=== PATIENT | male | born 1980 | race African-American/Black ===

== ENCOUNTER 2017-05-28 19:34 | Emergency (ER) | payer OTHER ==
[2017-05-28 20:07] LABS: BASOPHILS % (AUTO) 0.5 %; EOSINOPHILS # (AUTO) 0.1 10^3/uL (0.0-0.7); EOSINOPHILS % (AUTO) 1.3 %; HCT - HEMATOCRIT 41.7 % (42.0-52.0); LYMPHOCYTES # (AUTO) 0.9 10^3/uL (1.5-3.5); LYMPHOCYTES % (AUTO) 23.1 %; MEAN CORPUSCULAR HEMOGLOBIN 27.7 pg (27.0-31.0); MEAN CORPUSCULAR HGB CONC 33.6 g/dL (32.0-36.0); MEAN CORPUSCULAR VOLUME 82.5 fL (80.0-94.0); MEAN PLATELET VOLUME 8.2 fL (7.4-11.4); MONOCYTES # (AUTO) 0.4 10^3/uL (0.0-1.0); MONOCYTES % (AUTO) 10.1 %; NEUTROPHILS # (AUTO) 2.5 10^3/uL (1.5-6.6); RED BLOOD COUNT 5.06 10^6/uL (4.70-6.10); RED CELL DISTRIBUTION WIDTH 15.2 % (12.0-15.0); UNCORRECTED WHITE BLOOD COUNT 3.8 x10^3/uL; WHITE BLOOD COUNT 3.8 x10^3/uL (4.8-10.8)
--- NOTE | 2017-05-28 20:16 | ED Physician Documentation ---
PD HPI CHEST PAIN - Stated complaint Stated Complaint: CHEST PAIN - Chief complaint Chief Complaint: Cardiac - History obtained from History obtained from: Patient, Family - History of Present Illness Timing - onset: How many hours ago (1.5) Timing - duration: Hours (1.5) Timing - details: Abrupt onset Pain level max: 6 Pain level now: 0 Quality: Aching, Dull, Pain Location: Substernal Radiation: Other (non-radiating) Improved by: Other (hasn't taken anything) Worsened by: Other (vomiting) Associated symptoms: Nausea, Vomiting, Other (states vomiting and diarrhea today.). No: Shortness of air, Diaphoresis Similar symptoms before: Has not had sx before Recently seen: Not recently seen - Additional information Additional information: Patient is a 36-year-old male who presents to the emergency department with vomiting and diarrhea after eating [employer] today. Then developed chest pain tonight. The chest pain has been constant, but resolved upon arrival to the emergency department. Has never had pain like this before. No family history of cardiac disease. Review of Systems Ten Systems: 10 systems reviewed and negative Constitutional: denies: Fever, Chills Ears: denies: Ear pain Nose: denies: Rhinorrhea / runny nose, Congestion Throat: denies: Sore throat Cardiac: denies: Palpitations Respiratory: denies: Dyspnea, Cough, Wheezing GI: denies: Hematemesis, Bloody / black stool Skin: denies: Rash Musculoskeletal: denies: Neck pain, Back pain Neurologic: denies: Headache PD PAST MEDICAL HISTORY - Past Medical History Past Medical History: No Cardiovascular: None Respiratory: None Neuro: None Endocrine/Autoimmune: None GI: None HEENT: None Psych: None Musculoskeletal: None Derm: None - Past Surgical History Past Surgical History: No - Present Medications Home Medications: Ambulatory Orders Medication Instructions Recorded Confirmed Ondansetron Odt [Zofran] 4 mg TL Q6H PRN #10 tablet 05/28/17 - Allergies Allergies/Adverse Reactions: Allergies Allergy/AdvReac Type Severity Reaction Status Date / Time shellfish derived Allergy Anaphylaxis Verified 05/28/17 20:10 - Social History Does the pt smoke?: No Smoking Status: Never smoker Does the pt drink ETOH?: Yes Does the pt have substance abuse?: No - Immunizations Immunizations are current?: Yes - POLST Patient has POLST: No PD ED PE NORMAL - Vitals Vital signs reviewed: Yes - General General: Alert and oriented X 3, No acute distress, Well developed/nourished - HEENT HEENT: Moist mucous membranes, Pharynx benign - Neck Neck: Supple, no meningeal sign - Cardiac Cardiac: RRR, Strong equal pulses - Respiratory Respiratory: No respiratory distress, Clear bilaterally - Abdomen Abdomen: Soft, Non tender, Non distended - Derm Derm: Warm and dry - Extremities Extremities: No edema, No calf tenderness / cord - Neuro Neuro: Alert and oriented X 3 - Psych Psych: Normal mood, Normal affect Results - Vitals Vitals: Vital Signs - 24 hr 05/28/17 05/28/17 19:43 21:30 Temperature 36.5 C Heart Rate 75 74 Respiratory 23 18 Rate Blood Pressure 138/72 H 130/75 O2 Saturation 98 99 Oxygen O2 Source Room air - EKG (time done) 1946 Rate: Rate (enter#) (75) Rhythm: NSR [place]: Normal Intervals: Normal NV QRS: Normal Ischemia: Normal ST segments Computer interpretation: Agree with computer - Labs Labs: Laboratory Tests 05/28/17 05/28/17 05/28/17 20:00 20:00 20:00 WBC 3.8 L RBC 5.06 Hgb 14.0 Hct 41.7 L MCV 82.5 MCH 27.7 MCHC 33.6 RDW 15.2 H Plt Count 157 MPV 8.2 Neut # 2.5 Lymph # 0.9 L Davis # 0.4 Eos # 0.1 Baso # 0.0 Absolute Nucleated RBC 0.00 Nucleated RBC % 0.0 Sodium 137 Potassium 3.3 L Chloride 105 Carbon Dioxide 24 Anion Gap 8.0 BUN 21 H Creatinine 1.4 H Estimated GFR (MDRD) 70 L Glucose 103 H Calcium 8.6 Total Bilirubin 2.4 H AST 22 ALT 25 Alkaline Phosphatase 43 Troponin I < 0.04 Total Protein 7.3 Albumin 4.2 Globulin 3.1 Albumin/Globulin Ratio 1.4 Lipase 27 - Rads (name of study) cxr Radiology: Prelim report reviewed, EMP read contemporaneously, See rad report ( No acute disease) PD MEDICAL DECISION MAKING - ED course Complexity details: reviewed results, re-evaluated patient, considered differential (No ST elevation AK, no aortic dissection, no PE, no tension pneumothorax, no aortic aneurysm), d/w patient, d/w family ED course: Patient is a 36-year-old male who presents to the emergency department what appears to be a viral gastroenteritis versus food poisoning. Tolerating p.o. without difficulty here. Feels better after Zofran. Chest pain resolved upon arrival. Was given a GI cocktail as well. No evidence of acute coronary syndrome. Patient is well-appearing, nontoxic. Afebrile. Patient counseled regarding signs and symptoms for which I believe and urgent re-evaluation would be necessary. Patient with good understanding of and agreement to plan and is comfortable going home at this time This document was made in part using voice recognition software. While efforts are made to proofread this document, sound alike and grammatical errors may occur. Departure - Departure Disposition: 01 Home, Self Care Clinical Impression: Viral gastroenteritis Chest pain Qualifiers: Chest pain type: unspecified Qualified Code(s): R07.9 - Chest pain, unspecified Condition: Good Instructions: ED Chest Pain Atypical Unkn Cause, ED Gastroenteritis Viral Follow-Up: your,doctor in 1 week [Other] Prescriptions: Ondansetron Odt [Zofran] 4 mg TL Q6H PRN #10 tablet PRN Reason: Nausea / Vomiting Comments: Drink plenty of fluids and rest. Return if you worsen. Discharge Date/Time: 05/28/17 21:31
[2017-05-28 20:19] LABS: ALBUMIN/GLOBULIN RATIO 1.4 (1.0-2.2); BILIRUBIN,TOTAL 2.4 mg/dL (0.2-1.0); CALCIUM 8.6 mg/dL (8.5-10.3); CREATININE 1.4 mg/dL (0.6-1.2); POTASSIUM 3.3 mmol/L (3.5-5.0); TOTAL PROTEIN 7.3 g/dL (6.7-8.2)
[2017-05-28] MEDS ORDERED: LIDOCAINE VISCOUS 2% 15 ML UDC MM STA (20:24)
[2017-05-28] MEDS ORDERED: SUCRALFATE 1 GM/10 ML UDC PO STA (20:24)
[2017-05-28] MEDS ORDERED: MAG HYDROX/AL HYDROX/SIMETH 30 ML UDC PO STA (20:24)
[2017-05-28] MEDS ORDERED: FAMOTIDINE 20 MG TABLET PO STA (20:24)
[2017-05-28] MEDS ORDERED: SODIUM CHLORIDE 0.9% 1,000 ML IV ONE (20:25)
[2017-05-28] MEDS ORDERED: ONDANSETRON 4 MG/2 ML VIAL IVP STA (20:30)
[2017-05-28] MEDS ORDERED: FAMOTIDINE 20 MG TABLET ONE (20:38)
[2017-05-28] MEDS ORDERED: ONDANSETRON 4 MG/2 ML VIAL ONE (20:38)
[2017-05-28] MEDS ORDERED: LIDOCAINE VISCOUS 2% 15 ML UDC MM ONE (20:39)
[2017-05-28] MEDS ORDERED: MAG HYDROX/AL HYDROX/SIMETH 30 ML UDC ONE (20:39)
[2017-05-28] MEDS ORDERED: SUCRALFATE 1 GM/10 ML UDC ONE (20:39)
--- NOTE | 2017-05-28 20:58 | XRAY Preliminary Report ---
Exam: XR CHEST 1 VIEW IMPRESSION: Hypoinflation, otherwise unremarkable single view chest. [facility] SITE ID: [id number]
--- NOTE | 2017-05-28 21:00 | XRAY Report ---
EXAM: CHEST RADIOGRAPHY EXAM DATE: 05/28/2017 08:45 PM. CLINICAL HISTORY: Chest pain. COMPARISON: None. TECHNIQUE: 1 view. FINDINGS: Lungs/Pleura: Hypoinflated lungs. No focal opacities evident. No pleural effusion. No pneumothorax. Mediastinum: Within exam limitations, the cardiomediastinal contour is normal. Other: No bony abnormality identified. IMPRESSION: Hypoinflation, otherwise unremarkable single view chest. [facility] Referring Provider Line: [phone] SITE ID: [id number]
[2017-05-28 21:30] VITALS: BP 130/75
== END 2017-05-28 21:31 | disposition home or self-care (01) ==
LOC: ED 19:34
DX: A08.4 Viral intestinal infection, unspecified (principal); R07.9 Chest pain, unspecified
CPT/HCPCS: 36415; 71010; 80053; 83690; 84484; 85025; 93005; 96361; 96374; 99283; 99285; A9270

== ENCOUNTER 2021-02-25 20:10 | Emergency (ER) | payer OTHER ==
[2021-02-25] MEDS ORDERED: BUFFERED LIDOCAINE 10 ML SYRINGE SUBQ STA (21:43)
[2021-02-25] MEDS ORDERED: BACITRACIN ZINC OINT 1 PACKET TOP STA (21:43)
--- NOTE | 2021-02-25 21:43 | ED Physician Documentation ---
History of Present Illness - Stated complaint Stated Complaint: SLICED LT THUMB - Chief complaint Chief Complaint: Laceration - Additonal information Additional information: 40-year-old male presents emergency department for evaluation of a left thumb laceration sustained when washing dishes and cutting his thumb on a broken neyda jar. Patient is right-hand dominant. Tetanus is up-to-date. Review of Systems Constitutional: reports: Reviewed and negative Nose: reports: Reviewed and negative Cardiac: reports: Reviewed and negative Skin: reports: Laceration (s) PD PAST MEDICAL HISTORY - Past Medical History Cardiovascular: None Respiratory: None Endocrine/Autoimmune: None GI: None : None HEENT: None Psych: None Musculoskeletal: None Derm: None - Past Surgical History Past Surgical History: No - Present Medications Home Medications: Ambulatory Orders Medication Instructions Recorded Confirmed Meloxicam [Mobic] 7.5 mg PO DAILY 02/25/21 02/25/21 - Allergies Allergies/Adverse Reactions: Allergies Allergy/AdvReac Type Severity Reaction Status Date / Time shellfish derived Allergy Anaphylaxis Verified 02/25/21 20:14 - Social History Does the pt smoke?: No Smoking Status: Never smoker Does the pt drink ETOH?: Yes Does the pt have substance abuse?: No - Immunizations Immunizations are current?: Yes - POLST Patient has POLST: No PD ED PE EXPANDED - Extremities Extremities: Left finger(s) (3 cm laceration on the left thumb between MCP and IP joint palmar side. Thumb is held in extension and patient is unable to flex the thumb raising suspicion for flexor tendon laceration.) Results - Vitals Vitals: Vital Signs - 24 hr 02/25/21 20:14 Temperature 36.5 C Heart Rate 77 Respiratory 16 Rate Blood Pressure 150/90 H O2 Saturation 97 Oxygen O2 Source Room air Procedures - Laceration (location) left thumb Length in cm: 3 Wound type: Linear, Into subcut fat, Into muscle, Clean Neurovascular status: Sensory intact, Vascular intact Tendon involvement: Tendon Injury Anesthesia: Lidocaine 1% Wound preparation: Chlorhexadine, Irrigated copiously NS Skin layer closure: Interrupted, Size #-0 - enter number (4), Sutures - enter # (6) Other: Patient tolerated well, No complications, Neurovascular intact, Tetanus UTD, Other (Patient placed in a thumb spica splint.) PD MEDICAL DECISION MAKING - ED course Complexity details: reviewed results, d/w patient, d/w human performance consultant (Dr. Lisa Chong at [facility]) ED course: 40-year-old male presents emergency department for evaluation of the left thumb laceration sustained when washing the dishes. This is a 3 cm laceration on the palmar side of the left thumb between MCP and IP joint. Unfortunately he has findings consistent with a full flexor tendon laceration. This case was discussed with on-call hand surgeon at [facility] Dr. Whitehead who recommends closure of the wound placement of the patient in a thumb spica splint and follow-up with his office next week. Wound was easily closed. Tetanus is up-to-date. Patient was placed in a thumb spica splint with approximately 20 degrees flexion of the wrist and 30 degrees flexion of the MCP joint. Routine wound care and emergent return precautions were discussed. Patient was given the follow-up phone number for Dr. Gonzalez and is also advised close follow-up with [facility] tomorrow to assist in the referral process. Departure - Departure Disposition: 01 Home, Self Care Clinical Impression: Laceration of thumb Qualifiers: Encounter type: initial encounter Damage to nail status: without damage Foreign body presence: without foreign body Laterality: left Qualified Code(s): S61.012A - Laceration without foreign body of left thumb without damage to nail, initial encounter Flexor tendon laceration of finger with open wound Qualifiers: Encounter type: initial encounter Qualified Code(s): S56.129A - Laceration of flexor muscle, fascia and tendon of unspecified finger at forearm level, initial encounter; S61.209A - Unspecified open wound of unspecified finger without damage to nail, initial encounter Condition: Stable Record reviewed to determine appropriate education?: Yes Instructions: ED Laceration Hand, Laceration Flexor Tendon Tx Follow-Up: IAN GONZALEZ [Physician No Access] - Within 1 week Comments: Lyle you were seen today in the ER for a left thumb laceration. We were able to close the laceration with 6 sutures. Unfortunately you did fully lacerated the flexor tendon of your thumb. This will need to be surgically repaired. I did speak on the phone with Dr. Gonzalez an orthopedic hand surgeon at [facility]. He would like you to call his office tomorrow to arrange follow-up for evaluation next week. Please call the office at [phone]. It is critical that you see the hand surgeon because without proper repair of this tendon you will not be able to move the thumb normally. Because you have insurance it is also very important that you follow-up tomorrow in the morning with [facility] to request assistance in making this referral occur as soon as possible. In 48 hours you may remove the dressing on your left hand. Gently wash with warm soap and water and reapply a bandage. You are to wear the thumb spica wrist splint at all times with the exception of when you change the bandage. This includes sleep. I recommend that you use a bag over your hand when showering. You can continue to take the meloxicam for pain relief and I recommend that you take Tylenol 500 mg with food 4 times a day as needed in addition to that. If at any point you have concerns of infection in the thumb such as redness, fevers milky drainage or red streaking then please return to the ER for a second evaluation.
[2021-02-25 22:37] VITALS: BP 177/77
== END 2021-02-25 22:37 | disposition home or self-care (01) ==
LOC: ED 20:10
DX: S61.012A Laceration without foreign body of left thumb without damage to nail, initial encounter (principal); S66.022A Laceration of long flexor muscle, fascia and tendon of left thumb at wrist and hand level, initial encounter; W25.XXXA Contact with sharp glass, initial encounter; Y93.G1 Activity, food preparation and clean up
CPT/HCPCS: 12002; 99281; 99283; A9270

== ENCOUNTER 2022-03-09 11:11 | Outpatient (CLI) | payer OTHER ==
[2022-03-09 11:52] VITALS: BP 116/85
--- NOTE | 2022-03-09 11:52 | SLEEP CARE CONSULTATION ---
Information from patient questionnaire entered by Geovanna Gomez MA. I have reviewed and concur with the information entered by Geovanna Gomez MA. This document represents the service I personally performed and the decisions made by , Melvi Echevarria ARNP. History of Present Illness Service Date and Time: 03/09/2022 1111 Reason for Visit: New patient (ONSET 07/2013, NO PRIOR SS, ) Chief Complaint: reports: Snoring, Observed pauses in breathing, Frequent greson kenings at night Date of Onset: 8 YEARS Usual bedtime: 12 -1230 AM Time it takes to fall asleep: 15 - 20 MINUTES Snores at night: Yes Observed to quit breathing while asleep: Yes Sleeps alone due to snoring: Yes Number of times waking at night: 2-3 Reasons for waking at night: reports: Snoring, Bathroom. denies: Choking, Gasping for air Toss, Turn, or Twitch while sleeping: Yes Recalls having dreams: Yes Usually gets out of bed at: [id number] Feels refreshed in the morning: No Morning headache: No Sleepy or fatigued during the day: Yes (no unintentional naps) Ever fallen asleep while driving: Yes (drowsy driving, no accidents) Takes day naps: No Dreams during day naps: Yes Prior sleep studies: No Additional HPI information: I had the pleasure of seeing BRIDGET CALDERON today regarding the possibility of him having a sleep disorder. His current complaints are snoring, observed pauses in breathing and frequent night awakenings. He states he snores heavily and his and heard him stop breathing at night. He is sleeping downstairs so that he does not wake up the 18 month old baby. He states he is always tired and does not wake up feeling rested normally. - Parasomnia Symptoms Ever been unable to move upon waking from sleep: No Walks in sleep: No Talks in sleep: Yes Ever acted out dreams in sleep: Yes Ever felt weak in the knees when startled or emotional: No Bothered by creepy, crawly, restless sensations in legs: No Problems with memory or concentration: Yes (both) Subjective Initial [place] Sleepiness Scale score: 14 (03/08/2022) Past Medical History Past Medical History: reports: Other (Pre-diabetes; 2021 Sept left hand tendon repair after laceration; having vasectomy Tues Mar) Social History The patient's occupation is a [employer]. Patient is and lives in [place]. Have you smoked in the past 12 months: No Alcohol use: Yes Alcohol amount and frequency: ONE GLASS 3 TIMES A MONTH Caffeine use: No Family History Family history of sleep disordered breathing: Yes Family Hx Sleep Apnea: Father: Snoring, Sleep apnea - Untreated Allergies and Home Medications Known drug allergies: Yes Drug allergies reviewed: Yes (NKDA) Home medication list reviewed: Yes Allergy and home medication list: Allergies shellfish derived Allergy (Verified 02/25/21 20:14) Anaphylaxis VERIFIED BY ROMEO PAYAN, 03/08/2022 1000 Medications: Multivitamins Generic Zyrtec from [employer] Fish oil verified by Zachery RIVASP 03-08-22 Review of Systems Weight gain over past 5 years: 15 Weight loss over past 5 years: 15 Cardiovascular: denies: high blood pressure Gastrointestinal: denies: heartburn Urinary: reports: frequency Neurological: reports: headaches Psychiatric: denies: anxiety, depression Ear/Nose/Throat: reports: nasal congestion, wisdom teeth removed. denies: dry mouth/throat, injury to nose, tonsillectomy Endocrine: denies: thyroid disease Musculoskeletal: reports: joint pain, neck pain, back pain, mobility problems Immunologic: reports: allergies to food or environment (SHELLFISH, SEVERE REACTION) Physical Exam Vital signs obtained and entered by: ROMEO PAYAN Blood Pressure: 116/85 (R20, P65, RIGHT) Cuff size: wrist Heart Rate: 67 O2 Saturation: 97 (CLOTH MASK) Height: 5 ft 11 in Weight: 226 lb (UNIFORM AND BOOTS) Body Mass Index: 31.5 BMI Classification: Obese Neck circumference: 17 (INCHES) Mouth and throat: normal Soft palate: normal Hard palate: normal Uvula: edematous Uvula visualization: 100% Mallampati Class I Tongue: enlarged in size with teeth zapata on lateral edges Tonsils: 1+ Neck: normal w/o lymphadenopathy or thyromegaly Heart: regular rate and rhythm Lungs: clear bilaterally Impression and Plan 1. Suspected Obstructive Sleep Apnea-Hypopnea Syndrome, as suggested by a history of loud and irregular snoring, observed cessation of breath while asleep, frequent awakening during the night, unrefreshed sleep, cognitive impairment, and excessive daytime sleepiness. Narrow oropharynx and obesity are common predisposing factors for obstructive sleep apnea-hypopnea syndrome. I recommend proceeding to polysomnography to confirm the diagnosis and to assess severity. If the patient has significant sleep disordered breathing, a manual CPAP titration study will also be performed to find the optimal treatment pressure. I informed the patient of what the sleep studies involve and after some discussion, obtained agreement to proceed. The pathophysiology of obstructive sleep apnea-hypopnea syndrome was discussed with the patient and health risks of cardiovascular and cerebrovascular disease if not treated. Risks of drowsy driving discussed in detail and patient advised to avoid long distance driving and to puller through at the first sign of drowsiness. Patient agreed to plan. * Schedule polysomnography * Avoid long distance driving or driving when feeling sleepy. * Avoid alcohol, sedative and muscle relaxant around bedtime. * Attempt to lose weight. * Review instructions provided by trained office staff on how to prepare for the sleep study. * Return for follow-up after sleep study completed. Counseling Topics: Weight loss health impact Visit Type: In Office Time Spent with Patient (minutes): 30 Provider Statement: I spent 100% of the Face to Face Visit with the patient with greater than 50% spent counseling the patient and coordination of care.
== END 2022-03-09 11:12 | disposition home or self-care (01) ==
LOC: SC 11:11
PROVIDERS: ATTEND Nurse Practitioner Family
DX: R06.83 Snoring (principal); G47.8 Other sleep disorders; R06.81 Apnea, not elsewhere classified; G47.10 Hypersomnia, unspecified; E66.9 Obesity, unspecified; Z68.31 Body mass index [BMI] 31.0-31.9, adult
CPT/HCPCS: 99203; 99212

== ENCOUNTER 2022-03-23 19:31 | Outpatient (CLI) | payer OTHER | END 2022-03-23 19:32 | disposition home or self-care (01) | LOC: SC 19:31 | PROVIDERS: ATTEND Nurse Practitioner Family | DX: G47.33 Obstructive sleep apnea (adult) (pediatric) (principal) | CPT/HCPCS: 95810 ==

== ENCOUNTER 2022-04-01 10:21 | Outpatient (CLI) | payer OTHER ==
[2022-04-01 10:47] VITALS: BP 120/78
--- NOTE | 2022-04-01 10:47 | SLEEP CARE CONSULTATION ---
Information from patient questionnaire entered by Daniel Martin. I have reviewed and concur with the information entered by Daniel Martin. This document represents the service I personally performed and the decisions made by , Melvi Echevarria ARNP. History of Present Illness Service Date and Time: 04/01/2022 1021 Initial [place] Sleepiness Scale score: 14 (03/08/2022) Current [place] Sleepiness Scale score: 10 (04/01/22) Additional HPI information: BRIDGET CALDERON returns for follow up and results of the recently performed polysomnography. I explained the pathophysiology behind obstructive sleep apnea. We then spent quite a bit of time discussing different treatment options. For mild obstructive sleep apnea, surgery and oral appliance are alternatives to nasal CPAP therapy but in moderate or severe cases, nasal CPAP is the most effective and reliable treatment. Because apnea is primarily in supine position, then positional management therapy could be effective. Methods discussed such as positioning with pillows to prevent supine sleep. I reviewed the impact of weight changes on sleep apnea and strongly recommended losing weight. Patient counseled not drink alcohol less than 4 hours before bedtime as it can increase snoring and apnea. Patient was cautioned about risks of drowsy driving until sleepiness symptoms resolve. Patient denies drowsy driving. Sleep Study - Results Type of Sleep Study: Polysomnography (DONE 03/23/22) Prior sleep studies: No Polysomnography/Home Sleep Study results: IMPRESSION: The quality of the study is good. The patient had normal sleep efficiency. The sleep architecture was normal. Respiratory monitoring showed mild obstructive sleep apnea-hypopnea (AHI = 7.0) associated with frequent arousals, oxyhemoglobin desaturation and moderate hypoxia (margarita oxygen saturation of 78%). The slept mostly supine (supine AHI = 7.9; non-supine = 1.88). Snore was light to loud in intensity. There was no significant periodic leg movement of sleep. Cardiac rhythm was normal sinus rhythm without significant arrhythmia. No abnormal behavior (parasomnia) observed during the night. Allergies and Home Medications Home medication list reviewed: Yes (no changes) Allergy and home medication list: Allergies shellfish derived Allergy (Verified 02/25/21 20:14) Anaphylaxis Review of Systems Review of systems same as previous: No (Vasectomy) Physical Exam Vital signs obtained and entered by: LAILA CHAVEZ Blood Pressure: 120/78 (RIGHT ARM ) Cuff size: regular Heart Rate: 75 O2 Saturation: 97 Height: 5 ft 11 in Weight: 235 lb Body Mass Index: 32.8 BMI Classification: Obese Impression and Plan 1. Obstructive Sleep Apnea-Hypopnea Syndrome, mild, with lowest oxygen saturation of 78%. Obviously this is the cause of the patients symptoms of unrefreshed sleep, and excessive daytime sleepiness. I reviewed with Bridget that he could choose positional therapy, oral appliance therapy or CPAP therapy to treat his KRISTEN. He would like to discuss with his before making a decision. Since patients apnea is primarily in supine position, patient advised to try positional therapy while he is making decision on therapy and agreed with plan. He is also advised to lose weight as this will reduce snoring and apnea. An oral appliance can also be used for snoring but often is not always covered by insurance. Follow up will be scheduled once he decides on therapy. * Patient to call with decision on therapy choice * Positional therapy until talks to about choices * Attempt to lose weight. * Avoid alcohol consumption near bedtime. * Avoid supine sleep * The patient is again cautioned about driving until sleepiness completely resolves. * Follow up as necessary, depending up therapy choice. I will assess response to therapy and compliance at that time. Counseling Topics: Weight loss health impact Visit Type: In Office Time Spent with Patient (minutes): 21 Provider Statement: I spent 100% of the Face to Face Visit with the patient with greater than 50% spent counseling the patient and coordination of care.
== END 2022-04-01 10:22 | disposition home or self-care (01) ==
LOC: SC 10:21
PROVIDERS: ATTEND Nurse Practitioner Family
DX: G47.33 Obstructive sleep apnea (adult) (pediatric) (principal); E66.9 Obesity, unspecified; Z68.32 Body mass index [BMI] 32.0-32.9, adult
CPT/HCPCS: 99212; 99213

== ENCOUNTER 2022-06-22 08:20 | Outpatient (CLI) | payer OTHER ==
[2022-06-22 08:59] VITALS: BP 138/2
--- NOTE | 2022-06-22 08:59 | SLEEP CARE CONSULTATION ---
Information from patient questionnaire entered by Jyotsna Rodriguez. I have reviewed and concur with the information entered by Jyotsna Rodriguez. This document represents the service I personally performed and the decisions made by , Melvi Echevarria ARNP. History of Present Illness Service Date and Time: 06/22/2022 0820 Previous diagnosis: Mild, Obstructive Sleep Apnea-Hypopnea Syndrome AHI: 7.0 (in 2021) Reason for follow up: first compliance Equipment type: CPAP (RESMED Airsense 10) Equipment obtained from: Other ([facility]; got initial supplies) Mask style: Nasal (over the nose) Backup mask available: No (will keep old mask when replaced) Last cushion change: 1 month Prior sleep studies: No Type of Sleep Study: Polysomnography (DONE 03/23/22) HPI additional information: BRIDGET CALDERON was diagnosed to have mild, AHI 7.0, obstructive sleep apnea- hypopnea syndrome and returned today for CPAP therapy first compliance follow- up. Sleep Study - Results Type of Sleep Study: Polysomnography (DONE 03/23/22) Prior sleep studies: No CPAP Compliance Data - Data Reviewed with Patient Average duration of nightly device use: 5 hours 6 minutes Compliance rate %: 75 (31/32 days used; 04/21-05/22/2022) Current pressure setting (cmH2O): 4-15 (median 7.0, avg 9.8, max 11.1) Average residual AHI: 0.5 Central apnea: 0.1 Obstructive apnea: 0.3 Average large leak: 1.9 lpm Subjective Missed days of use due to: reports: illness (cold and ear infection) Patient concerns: denies: aerophagia, mask discomfort, air blowing in eyes, mask leak noise, condensation in mask/hose, nasal congestion, dry mouth, nose, throat, epistaxis Observed to snore while using device: No Current pressure setting perceived as: comfortable On therapy, patient: reports: sleeping better, awakening more refreshed, being more awake and alert during the day, more rested overall. denies: drowsiness while driving Initial [place] Sleepiness Scale score: 14 (03/08/2022) Current [place] Sleepiness Scale score: 9 (06/22/22) Allergies and Home Medications Drug allergies reviewed: Yes (shellfish derived) Home medication list reviewed: Yes Allergy and home medication list: New Meds: Cetirizine Amoxicillin Azelastine Medrol Joellenrin Shabnam Review of Systems Review of systems same as previous: No (ear infection) Physical Exam Vital signs obtained and entered by: JYOTSNA Dsouza MA Blood Pressure: 138/2 (LEFT ARM) Cuff size: regular Heart Rate: 76 O2 Saturation: 96 Height: 5 ft 11 in Weight: 234 lb 12.8 oz Body Mass Index: 32.7 BMI Classification: Obese Impression and Plan 1. Obstructive Sleep Apnea-Hypopnea Syndrome, mild, with good treatment compliance and good apnea control. On CPAP therapy, the patient has better sleep quality and is more rested overall. The patients pressure will be changed to autoCPAP 8-11 cmH20 to reflect pressure being used. Patient advised to contact me if pressure change is uncomfortable so that it can be adjusted. Goals for apnea control discussed. Patient's apnea severity and rationale for treatment to reduce apnea, improve sleep quality and reduce cardiovascular and cerebrova scular events was reviewed. 2. Obesity, unspecified. Currently patients BMI is 32.7. Obesity increases the risk of apnea, CPAP pressure requirements and overall health risks especially cardiovascular and diabetes. Thus patient is advised to lose weight. * Change auto CPAP pressure to 8-11 cmH2O * Notify me if snoring with mask or feeling that the pressure is too much or too little * Attempt to lose weight * Call this office if any problems using CPAP * Return for follow up in 1-2 months, or sooner if concerns arise ` Counseling Topics: Spare mask, Weight loss health impact Follow up with Sleep Care in: 1-2 months Visit Type: In Office Time Spent with Patient (minutes): 20 Provider Statement: I spent 100% of the Face to Face Visit with the patient with greater than 50% spent counseling the patient and coordination of care.
== END 2022-06-22 08:21 | disposition home or self-care (01) ==
LOC: SC 08:20
PROVIDERS: ATTEND Nurse Practitioner Family
DX: G47.33 Obstructive sleep apnea (adult) (pediatric) (principal); E66.9 Obesity, unspecified; Z68.32 Body mass index [BMI] 32.0-32.9, adult
CPT/HCPCS: 99212; 99213